=== PATIENT | male | born 1950 | race Caucasian/White ===

== ENCOUNTER 2019-12-31 14:00 | Outpatient (CLI) | payer MEDICARE, OTHER | END 2019-12-31 14:01 | disposition home or self-care (01) | LOC: DTY/OP 14:00 | PROVIDERS: ATTEND Nurse Practitioner Family | DX: E66.9 Obesity, unspecified (principal) | CPT/HCPCS: 97802 ==

== ENCOUNTER 2020-02-26 06:17 | Day surgery (SDC) | payer MEDICARE ==
[2020-02-24 12:23] VITALS: BMI 34.8
[2020-02-26] MEDS ORDERED: Lidocaine 1% PF 5 ML VIAL ONE (10:06)
[2020-02-26] MEDS ORDERED: PROPOFOL 200 MG/20 ML VIAL ONE (10:06)
[2020-02-26] MEDS ORDERED: PHENYLEPHRINE-NS 100 MCG/ML 10 ML SYRINGE ONE (10:06)
--- NOTE | 2020-02-26 10:14 | OP ---
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 PROCEDURE PERFORMED: Colonoscopy, screening. INDICATION: Average risk colorectal cancer screening exam. This is the patient's first colonoscopy. MEDICATIONS: See Anesthesia record. FINDINGS: After discussion of the risks, benefits, and alternatives of the procedure, informed consent was obtained and witnessed. Pre-endoscopic cardiopulmonary examination was satisfactory. Time-out was performed before sedation was achieved. Sedation was achieved with Anesthesia assistance in the endoscopy unit. Digital rectal exam was performed, which was unremarkable. A Pentax adult colonoscope was inserted into the anus and passed forward to the cecum in the usual fashion. Advancement to the cecum was difficult due to tortuosity of the colon. This required manual pressure, loop reduction, and patient repositioning to the supine position. Utilizing this technique, I was able to reach the cecal base and get a good examination. This was identified by the appendiceal orifice as well as the ileocecal valve. The terminal ileum was not intubated. The colonoscope was slowly withdrawn in a gradual circumferential manner with careful examination of the entire colonic mucosa. The quality of the prep was good. The colonic mucosa appeared normal throughout. Retroflexion in the rectum was unremarkable. The colonoscope was completely withdrawn and the patient allowed to recover. The patient tolerated the procedure well. There were no immediate postprocedure complications. IMPRESSION: 1. Tortuous colon. 2. Otherwise normal exam to the cecum. RECOMMENDATIONS: 1. Repeat colonoscopy for screening in 10 years. 2. Warfarin can be resumed. Job ID: [id number]
== END 2020-02-26 10:30 | disposition home or self-care (01) ==
LOC: SDC 06:17
PROVIDERS: ATTEND Internal Medicine
PROC: 0DJD8ZZ Inspection of Lower Intestinal Tract, Via Natural or Artificial Opening Endoscopic (ICD-10-PCS; principal; 2020-02-26)
DX: Z12.11 Encounter for screening for malignant neoplasm of colon (principal); Q43.8 Other specified congenital malformations of intestine; M19.90 Unspecified osteoarthritis, unspecified site; I48.91 Unspecified atrial fibrillation; I13.0 Hypertensive heart and chronic kidney disease with heart failure and stage 1 through stage 4 chronic kidney disease, or unspecified chronic kidney disease; I50.9 Heart failure, unspecified; N18.30 Chronic kidney disease, stage 3 unspecified; E03.9 Hypothyroidism, unspecified; I47.2 Ventricular tachycardia; K21.9 Gastro-esophageal reflux disease without esophagitis; I25.2 Old myocardial infarction; E66.9 Obesity, unspecified; Z68.35 Body mass index [BMI] 35.0-35.9, adult; Z79.01 Long term (current) use of anticoagulants; Z79.899 Other long term (current) drug therapy; Z95.810 Presence of automatic (implantable) cardiac defibrillator
CPT/HCPCS: J2704

== ENCOUNTER 2020-07-09 13:07 | Outpatient (CLI) | payer MEDICARE | END 2020-07-09 13:08 | disposition home or self-care (01) | LOC: BICRAD 13:07 | PROVIDERS: ATTEND Internal Medicine Cardiovascular Disease | DX: Z08 Encounter for follow-up examination after completed treatment for malignant neoplasm (principal); I51.7 Cardiomegaly; Z92.29 Personal history of other drug therapy | CPT/HCPCS: 71046 ==

== ENCOUNTER 2021-01-22 10:41 | Inpatient (IN) | payer MEDICARE ==
[2021-01-22 12:09] LABS: #Lymphocytes 1.7 thou/uL (1.20-3.40); #Monocytes 0.4 thou/uL (0.11-0.59); #Neutrophils 3.7 thou/uL (1.40-6.50); %Basophils 0.1 % (0.0-1.0); %Eosinophils 0.8 % (0.0-10.0); %Lymphocytes 28.8 % (21.0-51.0); %Monocytes 6.9 % (0.0-10.0); %Neutrophils 63.3 % (42.0-75.0); ALT (SGPT) 33 U/L (8-55); AST (SGOT) 27 U/L (5-34); Albumin 3.6 g/dL (3.4-4.8); Alkaline Phosphatase 90 U/L (40-110); Anion Gap 14 mmol/L (10-20); BUN (Urea Nitrogen) 23 mg/dL (8.4-25.7); Bilirubin, Total 1.5 mg/dL (0.2-1.2); CK (CPK) 42 U/L (30-200); Calc. Creatinine Clearance 0 mL/min (70-130); Calcium 8.9 mg/dL (7.8-10.44); Carbon Dioxide 23 mmol/L (23-31); Chloride 102 mmol/L (98-107); Globulin 2.6 g/dL (2.4-3.5); Glucose 98 mg/dL (80-115); Hemoglobin 13.4 g/dL (14.0-18.0); Lipase 18 U/L (8-78); MDiff Complete? YES; Mean Corpuscular HGB CONC 33.7 g/dL (32.0-36.0); Mean Corpuscular Volume 94.9 fL (78.0-98.0); Mean Platelet Volume 10.1 fL (7.4-10.4); Platelet Count 115 thou/uL (130-400); Platelet Morphology Comment Appears Decreased; Polychromasia SLIGHT = 2-3 cells (100X) (0-2/hpf); Potassium 3.6 mmol/L (3.5-5.1); Protein, Total 6.2 g/dL (5.8-8.1); RBC Distribution Width 14.1 % (11.5-14.5); Sodium 135 mmol/L (136-145); White Blood Cell (WBC) Count 5.8 thou/uL (4.8-10.8)
[2021-01-22] MEDS ORDERED: Aspirin 325 MG TAB ONE (12:13)
[2021-01-22 12:42] LABS: Bacteria/HPF None Seen HPF (None Seen); Bilirubin Negative (Negative); Blood, Urine Negative (Negative); Clarity Clear (Clear); Glucose, Urine (Dipstick) Normal (Negative); Ketone, Urine Negative (Negative); Leukocyte Negative Leu/uL (Negative); Mucous/LPF Rare LPF (<2+); Nitrite Negative (Negative); Protein, Urine (Dipstick) 50 mg/dL (Neg-Trace); RBC/HPF 0-3 HPF (0-3); Specific Gravity, Urine 1.026 (1.002-1.036); Squamous Epithelial 0-3 HPF (0-3); WBC/HPF 0-3 HPF (0-3); pH, Urine 5.5 (5.0-9.0)
[2021-01-22 13:47] LABS: SARS-CoV-2 NAA Rapid Test Not Detected (NotDetected)
[2021-01-22 14:21] LABS: INR-International Normal Ratio 2.9; Prothrombin Time 30.7 sec (12.0-14.7)
[2021-01-22 14:22] LABS: PTT 46.4 sec (22.9-36.1)
[2021-01-22 15:02] LABS: Troponin I Less than 0.010 ng/mL (< 0.028)
[2021-01-22 15:48] VITALS: BMI 34.7
[2021-01-22] MEDS ORDERED: FLU VACC QS2021-22(65YR UP)/PF 240 MCG/0.7 ML SYRINGE IM ONE (16:15)
[2021-01-22 17:56] LABS: Troponin I 0.012 ng/mL (< 0.028)
[2021-01-22] MEDS: Carvedilol 3.125 MG TAB PO SCH (18:15)
[2021-01-22] MEDS: Mexiletine HCl 150 MG CAP PO SCH ×2 (18:16)
[2021-01-22] MEDS ORDERED: Warfarin Sodium 1.5 MG TAB PO SCH (18:30)
[2021-01-23 05:05] LABS: Hemoglobin 12.6 g/dL (14.0-18.0); INR-International Normal Ratio 3.4; Mean Corpuscular Hemoglobin 31.5 pg (27.0-31.0); Mean Corpuscular Volume 95.4 fL (78.0-98.0); Mean Platelet Volume 10.6 fL (7.4-10.4); Platelet Count 107 thou/uL (130-400); Prothrombin Time 35.1 sec (12.0-14.7); RBC Distribution Width 14.4 % (11.5-14.5); White Blood Cell (WBC) Count 5.4 thou/uL (4.8-10.8)
[2021-01-23 05:12] LABS: Anion Gap 12 mmol/L (10-20); BUN (Urea Nitrogen) 28 mg/dL (8.4-25.7); Calc. Creatinine Clearance 73 mL/min (70-130); Calcium 8.7 mg/dL (7.8-10.44); Carbon Dioxide 27 mmol/L (23-31); Chloride 103 mmol/L (98-107); Glucose 91 mg/dL (80-115); Potassium 3.8 mmol/L (3.5-5.1); Sodium 138 mmol/L (136-145)
[2021-01-23 05:36] LABS: Band 2 % (5-11); Lymphocytes 36 % (21-51); MDiff Complete? YES; Monocytes 8 % (0-10); Neutrophil 54 % (42-75)
[2021-01-23] MEDS: Levothyroxine Sodium 100 MCG TAB PO SCH (06:29)
[2021-01-23] MEDS: Cholecalciferol 1,000 UNITS (25 MCG) TAB PO SCH (08:11)
[2021-01-23] MEDS: Carvedilol 3.125 MG TAB PO SCH ×2 (08:11→15:42)
[2021-01-23] MEDS: Amiodarone 200 MG TAB PO SCH (08:11)
[2021-01-23] MEDS: Mexiletine HCl 150 MG CAP PO SCH ×3 (08:12→20:35)
[2021-01-23] MEDS: Magnesium Oxide 250 MG TAB PO SCH (08:12)
[2021-01-23] MEDS ORDERED: Warfarin Sodium 1.5 MG TAB PO SCH (17:00)
[2021-01-23] MEDS: HYDROcodone/Acetaminophen 5/325 mg Tablet PO PRN (21:13)
[2021-01-24] MEDS: Levothyroxine Sodium 100 MCG TAB PO SCH (05:41)
[2021-01-24 05:50] LABS: INR-International Normal Ratio 3.2; Prothrombin Time 33.2 sec (12.0-14.7)
[2021-01-24] MEDS: Carvedilol 3.125 MG TAB PO SCH ×2 (10:00→15:58)
[2021-01-24] MEDS: Amiodarone 200 MG TAB PO SCH (10:01)
[2021-01-24] MEDS: Cholecalciferol 1,000 UNITS (25 MCG) TAB PO SCH (10:02)
[2021-01-24] MEDS: Lisinopril 2.5 MG TAB PO SCH (10:02)
[2021-01-24] MEDS: Magnesium Oxide 250 MG TAB PO SCH (10:03)
[2021-01-24] MEDS: Mexiletine HCl 150 MG CAP PO SCH ×3 (10:03→20:34)
[2021-01-24] MEDS: Spironolactone 25 MG TAB PO SCH (10:04)
[2021-01-24] MEDS ORDERED: Warfarin Sodium 3 MG TAB PO SCH (17:00)
[2021-01-24] MEDS: Ondansetron PF 4 MG/2 ML Vial IVP PRN ×2 (17:38→23:07)
[2021-01-25 05:21] LABS: INR-International Normal Ratio 3.1; Prothrombin Time 32.3 sec (12.0-14.7)
[2021-01-25] MEDS: Levothyroxine Sodium 100 MCG TAB PO SCH (06:07)
[2021-01-25 06:31] LABS: Anion Gap 17 mmol/L (10-20); BUN (Urea Nitrogen) 32 mg/dL (8.4-25.7); Calc. Creatinine Clearance 72 mL/min (70-130); Calcium 9.2 mg/dL (7.8-10.44); Carbon Dioxide 22 mmol/L (23-31); Chloride 100 mmol/L (98-107); Glucose 112 mg/dL (80-115); Magnesium 2.2 mg/dL (1.6-2.6); Sodium 135 mmol/L (136-145)
[2021-01-25] MEDS: Mexiletine HCl 150 MG CAP PO SCH ×3 (08:25→20:30)
[2021-01-25] MEDS: Spironolactone 25 MG TAB PO SCH (08:25)
[2021-01-25] MEDS: Amiodarone 200 MG TAB PO SCH ×3 (08:25→20:29)
[2021-01-25] MEDS: Cholecalciferol 1,000 UNITS (25 MCG) TAB PO SCH (08:25)
[2021-01-25] MEDS: Carvedilol 3.125 MG TAB PO SCH ×2 (08:25→16:01)
[2021-01-25] MEDS: Magnesium Oxide 250 MG TAB PO SCH (08:33)
[2021-01-25] MEDS ORDERED: Communication Order-Pharmacy FS SCH (09:00)
[2021-01-25] MEDS ORDERED: Sodium Chloride 0.9% 1,000 ML IV SCH ×2 (09:00→13:00)
[2021-01-25] MEDS: Lisinopril 2.5 MG TAB PO SCH (09:32)
[2021-01-25] MEDS ORDERED: Verapamil 5 MG/2 ML VIAL ONE (10:43)
[2021-01-25] MEDS ORDERED: Heparin 10,000 UNITS/ 10 ML VIAL ONE (10:43)
[2021-01-25] MEDS ORDERED: Nitroglycerin 100MG/250ML BOT 250 ML ONE (10:43)
[2021-01-25] MEDS ORDERED: Midazolam HCl 2 mg/2 ml Vial ONE (12:23)
[2021-01-25] MEDS ORDERED: Fentanyl 100 MCG/2 ML VIAL ONE (12:23)
[2021-01-25] MEDS ORDERED: Sodium Chloride 0.9% 200 ML IV PRN (12:55)
[2021-01-25] MEDS ORDERED: Acetaminophen/Codeine 30-300mg Tablet PO PRN ×2 (12:55)
[2021-01-25] MEDS ORDERED: Nitroglycerin 0.4 MG TAB (25 Tab Bottle) SL PRN (12:55)
[2021-01-25] MEDS ORDERED: Iopamidol 370 76% 100 ML VIAL ONE (13:11)
[2021-01-25] MEDS: Senokot S 8.6-50 MG TAB PO PRN (18:35)
[2021-01-25] MEDS: HYDROcodone/Acetaminophen 5/325 mg Tablet PO PRN (20:30)
[2021-01-26] MEDS ORDERED: Polyethylene Glycol 3350 17 GM Packet PO SCH ×2 (01:00→09:00)
[2021-01-26] MEDS: Levothyroxine Sodium 100 MCG TAB PO SCH (05:48)
[2021-01-26] MEDS ORDERED: Carvedilol 3.125 MG TAB PO SCH (07:16)
[2021-01-26] MEDS: Carvedilol 6.25 MG TAB PO SCH ×2 (08:27→16:19)
[2021-01-26] MEDS: Amiodarone 200 MG TAB PO SCH ×2 (08:28→16:19)
[2021-01-26] MEDS: Magnesium Oxide 250 MG TAB PO SCH (08:29)
[2021-01-26] MEDS: Cholecalciferol 1,000 UNITS (25 MCG) TAB PO SCH (08:29)
[2021-01-26] MEDS: Mexiletine HCl 150 MG CAP PO SCH ×2 (08:30→16:18)
[2021-01-26] MEDS: Spironolactone 25 MG TAB PO SCH (08:31)
[2021-01-26] MEDS: Ondansetron PF 4 MG/2 ML Vial IVP PRN (08:36)
[2021-01-26] MEDS: Senokot S 8.6-50 MG TAB PO PRN ×2 (08:44→09:32)
[2021-01-26 10:53] LABS: INR-International Normal Ratio 3.3; Prothrombin Time 33.9 sec (12.0-14.7)
[2021-01-26] MEDS ORDERED: Mineral Oil ENEMA PR SCH (12:00)
[2021-01-26 16:14] VITALS: TEMP 98.2
[2021-01-26 16:20] VITALS: BP 104/72
[2021-01-26] MEDS ORDERED: Warfarin Sodium 1.5 MG TAB PO SCH (17:00)
== END 2021-01-26 16:56 | disposition home or self-care (01) | DRG 287 ==
LOC: ERS 10:41 → ERHOLD 13:34 → 2SW 15:41
PROVIDERS: ADMIT Internal Medicine Geriatric Medicine; ATTEND Internal Medicine
PROC: 4A023N7 Measurement of Cardiac Sampling and Pressure, Left Heart, Percutaneous Approach (ICD-10-PCS; principal; 2021-01-25)
PROC: B2111ZZ Fluoroscopy of Multiple Coronary Arteries using Low Osmolar Contrast (ICD-10-PCS; 2021-01-25)
PROC: B2151ZZ Fluoroscopy of Left Heart using Low Osmolar Contrast (ICD-10-PCS; 2021-01-25)
DX: I47.2 Ventricular tachycardia (principal); I13.0 Hypertensive heart and chronic kidney disease with heart failure and stage 1 through stage 4 chronic kidney disease, or unspecified chronic kidney disease; I48.20 Chronic atrial fibrillation, unspecified; Z20.822 Contact with and (suspected) exposure to COVID-19; E86.0 Dehydration; I25.5 Ischemic cardiomyopathy; E78.5 Hyperlipidemia, unspecified; N18.30 Chronic kidney disease, stage 3 unspecified; M10.9 Gout, unspecified; E03.9 Hypothyroidism, unspecified; I50.9 Heart failure, unspecified; K59.00 Constipation, unspecified; Z95.810 Presence of automatic (implantable) cardiac defibrillator; I25.2 Old myocardial infarction; Z79.890 Hormone replacement therapy; Z79.01 Long term (current) use of anticoagulants; Z79.899 Other long term (current) drug therapy; Z23 Encounter for immunization
CPT/HCPCS: 36415; 36416; 71045; 78451; 80048; 80053; 81003; 81015; 82550; 83605; 83690; 83735; 83880; 84443; 84484; 85007; 85025; 85027; 85610; 85730; 87040; 87086; 90471; 90662; 93005; 93454; 99152; A9500; G0008; J1644; J2250; J2405; J3010; J7050; Q9967; U0002

== ENCOUNTER 2021-02-02 12:07 | Inpatient (IN) | payer MEDICARE ==
[2021-02-02 12:57] LABS: #Eosinphils 0.1 thou/uL (0.0-0.7); #Lymphocytes 1.8 thou/uL (1.20-3.40); #Monocytes 0.5 thou/uL (0.11-0.59); #Neutrophils 3.8 thou/uL (1.40-6.50); %Basophils 0.4 % (0.0-1.0); %Monocytes 8.3 % (0.0-10.0); %Neutrophils 61.3 % (42.0-75.0); Hemoglobin 13.7 g/dL (14.0-18.0); Mean Corpuscular HGB CONC 31.3 g/dL (32.0-36.0); Mean Corpuscular Hemoglobin 30.3 pg (27.0-31.0); Mean Corpuscular Volume 96.8 fL (78.0-98.0); Mean Platelet Volume 9.2 fL (7.4-10.4); Platelet Count 141 thou/uL (130-400); RBC Distribution Width 15.4 % (11.5-14.5); Red Blood Cell (RBC) Count 4.54 mill/uL (4.70-6.10); White Blood Cell (WBC) Count 6.2 thou/uL (4.8-10.8)
[2021-02-02 13:09] LABS: Prothrombin Time 32.1 sec (12.0-14.7)
[2021-02-02 13:10] LABS: PTT 52.9 sec (22.9-36.1)
[2021-02-02 13:22] LABS: ALT (SGPT) 175 U/L (8-55); AST (SGOT) 45 U/L (5-34); Albumin 3.4 g/dL (3.4-4.8); Alkaline Phosphatase 144 U/L (40-110); Anion Gap 14 mmol/L (10-20); BUN (Urea Nitrogen) 25 mg/dL (8.4-25.7); Bilirubin, Total 1.6 mg/dL (0.2-1.2); Calc. Creatinine Clearance 0 mL/min (70-130); Calcium 9.1 mg/dL (7.8-10.44); Carbon Dioxide 24 mmol/L (23-31); Chloride 99 mmol/L (98-107); Globulin 2.9 g/dL (2.4-3.5); Glucose 99 mg/dL (80-115); Potassium 4.6 mmol/L (3.5-5.1); Protein, Total 6.3 g/dL (5.8-8.1); Sodium 132 mmol/L (136-145)
[2021-02-02] MEDS ORDERED: Furosemide 40 MG/4 ML VIAL ONE (13:49)
[2021-02-02] MEDS ORDERED: Aspirin Chewable 81 MG TAB ONE ×2 (15:58→15:59)
[2021-02-02 16:32] LABS: Troponin I Less than 0.010 ng/mL (< 0.028)
[2021-02-02 17:12] LABS: SARS-CoV-2 NAA Rapid Test Not Detected (NotDetected)
[2021-02-02] MEDS ORDERED: Ondansetron PF 4 MG/2 ML Vial IVP PRN (19:24)
[2021-02-02] MEDS ORDERED: Acetaminophen 325 MG TAB PO PRN (19:24)
[2021-02-02] MEDS ORDERED: Nitroglycerin 0.4 MG TAB (25 Tab Bottle) SL PRN (19:30)
[2021-02-02 19:39] LABS: Troponin I 0.011 ng/mL (< 0.028)
[2021-02-02 21:37] VITALS: BMI 35.6
[2021-02-02] MEDS ORDERED: Polyethylene Glycol 3350 17 GM Packet PO PRN (21:56)
[2021-02-02] MEDS ORDERED: Mexiletine HCl 150 MG CAP PO SCH (22:15)
[2021-02-02] MEDS ORDERED: Lisinopril 2.5 MG TAB PO SCH (22:15)
[2021-02-02] MEDS ORDERED: Carvedilol 25 MG TAB PO SCH (22:15)
[2021-02-02] MEDS ORDERED: Amiodarone 200 MG TAB PO SCH (22:15)
[2021-02-03] MEDS: Furosemide 40 MG/4 ML VIAL SLOW IVP SCH ×2 (05:04→14:52)
[2021-02-03] MEDS ORDERED: Levothyroxine Sodium 100 MCG TAB PO SCH (06:00)
[2021-02-03] MEDS ORDERED: Carvedilol 25 MG TAB PO SCH (08:00)
[2021-02-03] MEDS ORDERED: Spironolactone 25 MG TAB PO SCH (08:00)
[2021-02-03 08:02] LABS: #Lymphocytes 1.9 thou/uL (1.20-3.40); #Monocytes 0.4 thou/uL (0.11-0.59); #Neutrophils 3.6 thou/uL (1.40-6.50); %Basophils 0.3 % (0.0-1.0); %Eosinophils 0.5 % (0.0-10.0); %Lymphocytes 31.9 % (21.0-51.0); %Monocytes 7.1 % (0.0-10.0); %Neutrophils 60.3 % (42.0-75.0); Mean Corpuscular HGB CONC 31.7 g/dL (32.0-36.0); Mean Corpuscular Hemoglobin 30.4 pg (27.0-31.0); Platelet Count 126 thou/uL (130-400); RBC Distribution Width 15.3 % (11.5-14.5); Red Blood Cell (RBC) Count 4.61 mill/uL (4.70-6.10)
[2021-02-03 08:11] LABS: INR-International Normal Ratio 2.7; Prothrombin Time 29.2 sec (12.0-14.7)
[2021-02-03 08:19] LABS: Anion Gap 14 mmol/L (10-20); BUN (Urea Nitrogen) 23 mg/dL (8.4-25.7); Calc. Creatinine Clearance 81 mL/min (70-130); Calcium 8.6 mg/dL (7.8-10.44); Carbon Dioxide 23 mmol/L (23-31); Chloride 102 mmol/L (98-107); Glucose 104 mg/dL (80-115); Potassium 3.7 mmol/L (3.5-5.1); Sodium 135 mmol/L (136-145)
[2021-02-03] MEDS: Mexiletine HCl 150 MG CAP PO SCH ×2 (08:54→14:52)
[2021-02-03] MEDS ORDERED: Multivit, Therapeutic 1 TAB PO SCH (09:00)
[2021-02-03] MEDS ORDERED: Magnesium Oxide 400 MG TAB PO SCH (09:00)
[2021-02-03] MEDS ORDERED: Lisinopril 2.5 MG TAB PO SCH (09:00)
[2021-02-03] MEDS ORDERED: Cholecalciferol 1,000 UNITS (25 MCG) TAB PO SCH (09:00)
[2021-02-03] MEDS ORDERED: Amiodarone 200 MG TAB PO SCH (09:00)
[2021-02-03 16:31] VITALS: BP 132/82; TEMP 98.1
[2021-02-04] MEDS ORDERED: Furosemide 20 MG TAB PO SCH (09:00)
[2021-02-04] MEDS ORDERED: Warfarin Sodium 3 MG TAB PO SCH (17:00)
[2021-02-09] MEDS ORDERED: Amiodarone 200 MG TAB PO SCH (09:00)
== END 2021-02-03 16:05 | disposition home or self-care (01) | DRG 292 ==
LOC: ERS 12:07 → ERHOLD 15:38 → 2NO 18:53
PROVIDERS: ADMIT Family Medicine; ATTEND Internal Medicine
DX: I50.23 Acute on chronic systolic (congestive) heart failure (principal); I47.2 Ventricular tachycardia; I25.5 Ischemic cardiomyopathy; E03.9 Hypothyroidism, unspecified; I48.91 Unspecified atrial fibrillation; E78.5 Hyperlipidemia, unspecified; Z20.822 Contact with and (suspected) exposure to COVID-19; N18.30 Chronic kidney disease, stage 3 unspecified; I51.7 Cardiomegaly; Z79.899 Other long term (current) drug therapy; Z79.01 Long term (current) use of anticoagulants; I25.2 Old myocardial infarction; Z98.890 Other specified postprocedural states; Z95.810 Presence of automatic (implantable) cardiac defibrillator
CPT/HCPCS: 36415; 71046; 80048; 80053; 83880; 84443; 84484; 85025; 85610; 85730; 93005; 93798; 96374; J1940; U0002

== ENCOUNTER 2021-02-28 12:05 | Emergency (ER) | payer MEDICARE ==
[2021-02-28 13:02] LABS: #Basophils 0.1 thou/uL (0.0-0.2); #Lymphocytes 1.7 thou/uL (1.20-3.40); #Monocytes 0.3 thou/uL (0.11-0.59); #Neutrophils 3.4 thou/uL (1.40-6.50); %Basophils 0.9 % (0.0-1.0); %Eosinophils 0.8 % (0.0-10.0); %Lymphocytes 30.9 % (21.0-51.0); %Neutrophils 61.4 % (42.0-75.0); Mean Corpuscular HGB CONC 32.4 g/dL (32.0-36.0); Mean Corpuscular Volume 95.7 fL (78.0-98.0); Mean Platelet Volume 10.3 fL (7.4-10.4); Platelet Count 127 thou/uL (130-400); RBC Distribution Width 14.8 % (11.5-14.5); Red Blood Cell (RBC) Count 4.84 mill/uL (4.70-6.10); White Blood Cell (WBC) Count 5.6 thou/uL (4.8-10.8)
[2021-02-28 13:12] LABS: PTT 63.7 sec (22.9-36.1)
[2021-02-28 13:14] LABS: INR-International Normal Ratio 6.7
[2021-02-28 13:26] LABS: ALT (SGPT) 12 U/L (8-55); AST (SGOT) 17 U/L (5-34); Albumin 3.8 g/dL (3.4-4.8); Alkaline Phosphatase 85 U/L (40-110); Anion Gap 17 mmol/L (10-20); BUN (Urea Nitrogen) 19 mg/dL (8.4-25.7); Bilirubin, Total 1.6 mg/dL (0.2-1.2); Calc. Creatinine Clearance 0 mL/min (70-130); Calcium 9.2 mg/dL (7.8-10.44); Carbon Dioxide 20 mmol/L (23-31); Chloride 103 mmol/L (98-107); Globulin 2.7 g/dL (2.4-3.5); Glucose 128 mg/dL (80-115); Potassium 3.9 mmol/L (3.5-5.1); Protein, Total 6.5 g/dL (5.8-8.1); Sodium 136 mmol/L (136-145)
[2021-02-28 22:01] LABS: SARS-CoV-2 PCR by NAA Not Detected (NotDetected)
== END 2021-02-28 14:53 | disposition home or self-care (01) ==
LOC: ERS 12:05
DX: R79.1 Abnormal coagulation profile (principal); I49.8 Other specified cardiac arrhythmias; I50.9 Heart failure, unspecified; I48.91 Unspecified atrial fibrillation; I25.2 Old myocardial infarction; Z20.822 Contact with and (suspected) exposure to COVID-19; Z95.0 Presence of cardiac pacemaker; Z79.01 Long term (current) use of anticoagulants; Z79.899 Other long term (current) drug therapy
CPT/HCPCS: 80053; 83880; 84484; 85025; 85610 ×2; 85730; 93005; 99283; G0463; U0003; U0005; 36415; 99211

== ENCOUNTER 2021-09-05 15:40 | Outpatient (CLI) | payer MEDICARE | END 2021-09-05 15:41 | disposition home or self-care (01) | LOC: ULT 15:40 | PROVIDERS: ATTEND Internal Medicine Nephrology | DX: I12.9 Hypertensive chronic kidney disease with stage 1 through stage 4 chronic kidney disease, or unspecified chronic kidney disease (principal); N18.30 Chronic kidney disease, stage 3 unspecified | CPT/HCPCS: 76770; 93975 ==

== ENCOUNTER 2022-08-23 16:39 | Inpatient (IN) | payer MEDICARE ==
[2022-08-23 17:48] VITALS: BMI 33.3
[2022-08-23 17:57] LABS: #Monocytes 0.3 thou/uL (0.11-0.59); %Basophils 0.8 % (0.0-1.0); %Eosinophils 0.6 % (0.0-10.0); %Lymphocytes 32.7 % (21.0-51.0); %Monocytes 5.7 % (0.0-10.0); Hemoglobin 14.6 g/dL (14.0-18.0); Mean Corpuscular HGB CONC 31.5 g/dL (32.0-36.0); Mean Corpuscular Hemoglobin 30.1 pg (27.0-31.0); Mean Corpuscular Volume 95.5 fl (78.0-98.0); Mean Platelet Volume 13.7 fL (7.4-10.4); Platelet Count 160 10x3/uL (130-400); RBC Distribution Width 19.1 % (11.5-14.5); Red Blood Cell (RBC) Count 4.85 mill/uL (4.70-6.10); White Blood Cell (WBC) Count 5.1 10x3/uL (4.8-10.8)
[2022-08-23 18:23] LABS: INR-International Normal Ratio 3.2; Prothrombin Time 34.2 sec (12.0-14.7)
[2022-08-23 18:58] LABS: ALT (SGPT) 9 U/L (8-55); AST (SGOT) 15 U/L (5-34); Albumin 4.2 g/dL (3.4-4.8); Alkaline Phosphatase 87 U/L (40-110); Anion Gap 17 mmol/L (10-20); BUN (Urea Nitrogen) 49 mg/dL (8.4-25.7); Bilirubin, Total 2.2 mg/dL (0.2-1.2); Calc. Creatinine Clearance 45 mL/min (70-130); Calcium 9.7 mg/dL (7.8-10.44); Carbon Dioxide 21 mmol/L (23-31); Chloride 104 mmol/L (98-107); Estimated GFR 29; Glucose 92 mg/dL (80-115); Potassium 4.4 mmol/L (3.5-5.1); Protein, Total 7.2 g/dL (5.8-8.1); Sodium 138 mmol/L (136-145)
[2022-08-23] MEDS: Mexiletine HCl 150 MG CAP PO SCH (20:22)
[2022-08-23] MEDS: Furosemide 40 MG/4 ML VIAL SLOW IVP SCH (20:22)
[2022-08-23] MEDS: Acetaminophen 325 MG TAB PO PRN (23:39)
[2022-08-24] MEDS: Levothyroxine 150 MCG TAB PO SCH (05:21)
[2022-08-24] MEDS: Mexiletine HCl 150 MG CAP PO SCH ×2 (08:16→20:38)
[2022-08-24] MEDS: Amiodarone 200 MG TAB PO SCH (08:16)
[2022-08-24 09:08] LABS: INR-International Normal Ratio 3.1; Prothrombin Time 33.7 sec (12.0-14.7)
[2022-08-24 14:36] LABS: Anion Gap 16 mmol/L (10-20); BUN (Urea Nitrogen) 55 mg/dL (8.4-25.7); Calc. Creatinine Clearance 44 mL/min (70-130); Calcium 9.9 mg/dL (7.8-10.44); Carbon Dioxide 24 mmol/L (23-31); Chloride 104 mmol/L (98-107); Estimated GFR 28; Glucose 112 mg/dL (80-115); Potassium 4.9 mmol/L (3.5-5.1); Sodium 139 mmol/L (136-145)
[2022-08-24] MEDS: Acetaminophen 325 MG TAB PO PRN (16:24)
[2022-08-24] MEDS: Furosemide 40 MG/4 ML VIAL SLOW IVP SCH ×2 (16:50→20:38)
[2022-08-24] MEDS ORDERED: Furosemide 40 MG/4 ML VIAL SLOW IVP SCH (17:00)
[2022-08-24] MEDS ORDERED: Warfarin Sodium 3 MG TAB PO SCH (17:00)
[2022-08-24] MEDS ORDERED: DOBUTamine 500 mg/250 ml 250 ML IVPB SCH (17:00)
[2022-08-25 05:33] LABS: INR-International Normal Ratio 3.5
[2022-08-25 05:43] LABS: Anion Gap 16 mmol/L (10-20); BUN (Urea Nitrogen) 53 mg/dL (8.4-25.7); Calc. Creatinine Clearance 52 mL/min (70-130); Calcium 9.2 mg/dL (7.8-10.44); Carbon Dioxide 22 mmol/L (23-31); Chloride 103 mmol/L (98-107); Estimated GFR 34; Glucose 72 mg/dL (80-115); Sodium 137 mmol/L (136-145)
[2022-08-25] MEDS: Levothyroxine 150 MCG TAB PO SCH (05:45)
[2022-08-25] MEDS: Mexiletine HCl 150 MG CAP PO SCH ×2 (09:23→20:31)
[2022-08-25] MEDS: Amiodarone 200 MG TAB PO SCH (09:23)
[2022-08-25] MEDS: Furosemide 40 MG/4 ML VIAL SLOW IVP SCH ×2 (09:23→20:31)
[2022-08-25] MEDS: Bisacodyl 5 MG TAB PO PRN (13:29)
[2022-08-25] MEDS ORDERED: Warfarin Sodium 1.5 MG TAB PO SCH (17:00)
[2022-08-26] MEDS: Acetaminophen 325 MG TAB PO PRN (00:02)
[2022-08-26] MEDS: Levothyroxine 150 MCG TAB PO SCH (05:39)
[2022-08-26 05:53] LABS: INR-International Normal Ratio 2.7
[2022-08-26] MEDS: Amiodarone 200 MG TAB PO SCH (09:08)
[2022-08-26] MEDS: Mexiletine HCl 150 MG CAP PO SCH ×2 (09:10→20:44)
[2022-08-26] MEDS: Furosemide 40 MG/4 ML VIAL SLOW IVP SCH (09:11)
[2022-08-26] MEDS: Bisacodyl 5 MG TAB PO PRN (12:21)
[2022-08-26] MEDS: Furosemide 100 MG/10 ML VIAL SLOW IVP SCH (14:45)
[2022-08-26] MEDS: DOBUTamine 500 mg/250 ml 250 ML IVPB SCH (14:46)
[2022-08-26] MEDS: Warfarin Sodium 2 MG TAB PO SCH (16:55)
[2022-08-26] MEDS ORDERED: Warfarin Sodium 1.5 MG TAB PO SCH (17:00)
[2022-08-27] MEDS: Levothyroxine 150 MCG TAB PO SCH (05:36)
[2022-08-27] MEDS: Furosemide 100 MG/10 ML VIAL SLOW IVP SCH ×2 (05:36→15:09)
[2022-08-27 05:37] LABS: INR-International Normal Ratio 2.4; Prothrombin Time 27.5 sec (12.0-14.7)
[2022-08-27] MEDS: DOBUTamine 500 mg/250 ml 250 ML IVPB SCH (06:54)
[2022-08-27] MEDS: Amiodarone 200 MG TAB PO SCH (09:45)
[2022-08-27] MEDS: Mexiletine HCl 150 MG CAP PO SCH ×2 (09:46→21:44)
[2022-08-27 16:59] LABS: #Monocytes 0.5 thou/uL (0.11-0.59); %Basophils 0.2 % (0.0-1.0); %Eosinophils 0.2 % (0.0-10.0); %Monocytes 9.2 % (0.0-10.0); %Neutrophils 67.2 % (42.0-75.0); Hemoglobin 13.7 g/dL (14.0-18.0); Mean Corpuscular HGB CONC 32.5 g/dL (32.0-36.0); Mean Corpuscular Hemoglobin 29.8 pg (27.0-31.0); Mean Corpuscular Volume 91.7 fl (78.0-98.0); Mean Platelet Volume 13.5 fL (7.4-10.4); Platelet Count 130 10x3/uL (130-400); RBC Distribution Width 19.2 % (11.5-14.5); Red Blood Cell (RBC) Count 4.59 mill/uL (4.70-6.10); White Blood Cell (WBC) Count 5.9 10x3/uL (4.8-10.8)
[2022-08-27 17:21] LABS: ALT (SGPT) 52 U/L (8-55); AST (SGOT) 47 U/L (5-34); Alkaline Phosphatase 89 U/L (40-110); Anion Gap 16 mmol/L (10-20); BUN (Urea Nitrogen) 40 mg/dL (8.4-25.7); Calc. Creatinine Clearance 62 mL/min (70-130); Calcium 9.4 mg/dL (7.8-10.44); Carbon Dioxide 24 mmol/L (23-31); Chloride 102 mmol/L (98-107); Estimated GFR 44; Globulin 2.8 g/dL (2.4-3.5); Glucose 102 mg/dL (80-115); Potassium 3.3 mmol/L (3.5-5.1); Protein, Total 6.8 g/dL (5.8-8.1); Sodium 139 mmol/L (136-145)
[2022-08-27] MEDS: Warfarin Sodium 2 MG TAB PO SCH (19:17)
[2022-08-27] MEDS: Acetaminophen 325 MG TAB PO PRN (23:54)
[2022-08-28] MEDS: Furosemide 100 MG/10 ML VIAL SLOW IVP SCH ×2 (05:35→15:01)
[2022-08-28] MEDS: Levothyroxine 150 MCG TAB PO SCH (05:35)
[2022-08-28] MEDS ORDERED: Carvedilol 3.125 MG TAB PO SCH (09:00)
[2022-08-28] MEDS: Amiodarone 200 MG TAB PO SCH (09:48)
[2022-08-28] MEDS: Mexiletine HCl 150 MG CAP PO SCH (09:48)
[2022-08-28 11:43] LABS: INR-International Normal Ratio 2.6
[2022-08-28] MEDS ORDERED: Potassium Chloride 10 MEQ TAB PO SCH (14:45)
[2022-08-28 15:55] VITALS: BP 100/69; TEMP 97.1
[2022-08-28] MEDS: Warfarin Sodium 2 MG TAB PO SCH (17:12)
== END 2022-08-28 18:45 | disposition home or self-care (01) | DRG 291 ==
LOC: 2NO 16:39
PROVIDERS: ADMIT Internal Medicine Cardiovascular Disease; ATTEND Internal Medicine Cardiovascular Disease
DX: I13.0 Hypertensive heart and chronic kidney disease with heart failure and stage 1 through stage 4 chronic kidney disease, or unspecified chronic kidney disease (principal); I50.23 Acute on chronic systolic (congestive) heart failure; N17.9 Acute kidney failure, unspecified; N18.4 Chronic kidney disease, stage 4 (severe); N25.81 Secondary hyperparathyroidism of renal origin; I47.20 Ventricular tachycardia, unspecified; I48.0 Paroxysmal atrial fibrillation; E03.9 Hypothyroidism, unspecified; K21.9 Gastro-esophageal reflux disease without esophagitis; M19.90 Unspecified osteoarthritis, unspecified site; E78.5 Hyperlipidemia, unspecified; I25.10 Atherosclerotic heart disease of native coronary artery without angina pectoris; I25.5 Ischemic cardiomyopathy; E03.8 Other specified hypothyroidism; I95.89 Other hypotension; D63.1 Anemia in chronic kidney disease; I25.2 Old myocardial infarction; Z90.49 Acquired absence of other specified parts of digestive tract; Z98.890 Other specified postprocedural states; Z95.810 Presence of automatic (implantable) cardiac defibrillator
CPT/HCPCS: 36415; 71046; 80048; 80053; 83880; 83970; 85025; 85610; 93306; J1250; J1642; J1940

== ENCOUNTER 2023-05-16 09:14 | Outpatient (CLI) | payer MEDICARE | END 2023-05-16 09:15 | disposition home or self-care (01) | LOC: SCSMRI 09:14 | PROVIDERS: ATTEND Student in an Organized Health Care Education/Training Program | DX: R20.2 Paresthesia of skin (principal); R29.898 Other symptoms and signs involving the musculoskeletal system; M51.26 Other intervertebral disc displacement, lumbar region; M51.37 Other intervertebral disc degeneration, lumbosacral region; M47.817 Spondylosis without myelopathy or radiculopathy, lumbosacral region | CPT/HCPCS: 72148 ==